=== PATIENT | female | born 1940 | race Caucasian/White ===

== ENCOUNTER 2022-03-01 15:31 | Emergency (ER) | payer MEDICARE ==
[~2022-03-01] VITALS: Ht 170.2 cm; Wt 52.7 kg
[~2022-03-01 15:31] MED LIST: AMLO2.5T5 PO; ASPI-845 PO; BECL8.7A7 INH; BUPR100T5 PO; CITA20TA19 PO
[2022-03-01 16:06] LABS: BASOPHILS # (AUTO) 0.1 X10'3 (0-0.2); BASOPHILS % (AUTO) 0.9 % (0-1); EOSINOPHILS # (AUTO) 0.1 X10'3 (0-0.9); EOSINOPHILS % (AUTO) 1.4 % (0-6); HEMATOCRIT 42.6 % (35.0-45.0); LYMPHOCYTES # (AUTO) 1.7 X10'3 (1.1-4.8); LYMPHOCYTES % (AUTO) 22.6 % (21-51); MEAN CORPUSCULAR HEMOGLOBIN 28.6 PG (27.0-31.0); MEAN CORPUSCULAR HGB CONC 32.9 g/dL (33.0-36.5); MEAN PLATELET VOLUME 8.2 FL (7.4-10.4); MONOCYTES # (AUTO) 0.6 X10'3 (0-0.9); MONOCYTES % (AUTO) 7.4 % (2-12); NEUTROPHILS # (AUTO) 5.2 X10'3 (1.8-7.7); NEUTROPHILS % (AUTO) 67.7 % (42-75); PLATELET COUNT 300 X10'3 (140-440); RED CELL DISTRIBUTION WIDTH 13.3 % (11.5-14.5); WHITE BLOOD COUNT 7.6 X10'3 (4.5-11.0)
[2022-03-01 16:23] LABS: ALANINE AMINOTRANSFERASE 28 U/L (12-78); ALBUMIN 3.8 G/DL (3.4-5.0); ALBUMIN/GLOBULIN RATIO 1.2 (1.1-1.5); ALKALINE PHOSPHATASE 96 IU/L (46-116); ANION GAP 5 (8-16); ASPARTATE AMINO TRANSFERASE 20 U/L (10-37); BILIRUBIN,TOTAL 0.4 MG/DL (0.1-1.0); BLOOD UREA NITROGEN 17 MG/DL (7-18); BUN/CREATININE RATIO 23.3 (6.6-38.0); CALCIUM 8.9 MG/DL (8.5-10.1); CHLORIDE 106 MMOL/L (99-107); CREATININE 0.73 MG/DL (0.40-0.90); GLUCOSE 145 MG/DL (70-104); POTASSIUM 4.3 MMOL/L (3.5-5.1); SODIUM 142 MMOL/L (135-145); TOTAL CARBON DIOXIDE 31.5 MMOL/L (24-32); TOTAL PROTEIN 6.9 G/DL (6.4-8.2); eGFR 77 ML/MIN
[2022-03-01 17:29] LABS: CLARITY,URINE CLEAR (Clear); COLOR,URINE YELLOW (Yellow); GLUCOSE, URINE NEGATIVE (Neg); KETONES,URINE NEGATIVE (Neg); LEUKOCYTE ESTERASE ,URINE NEGATIVE (Neg); NITRITES, URINE NEGATIVE (Neg); OCCULT BLOOD,URINE NEGATIVE (Neg); PROTEIN,URINE NEGATIVE (Neg); UA COLLECTION TYPE CLN CATCH MIDSTREAM
[2022-03-01 20:53] VITALS: BP 126/80
== END 2022-03-01 20:55 | disposition home or self-care (01) ==
LOC: ER 15:33
DX: R53.1 Weakness (principal); I10 Essential (primary) hypertension; J45.909 Unspecified asthma, uncomplicated; M19.90 Unspecified osteoarthritis, unspecified site; Z88.0 Allergy status to penicillin; Z91.012 Allergy to eggs; Z91.011 Allergy to milk products; Z91.018 Allergy to other foods; Z88.8 Allergy status to other drugs, medicaments and biological substances; Z79.82 Long term (current) use of aspirin; Z79.899 Other long term (current) drug therapy
CPT/HCPCS: 36415; 71045; 80053; 81003; 84484; 85025; 93005; 99285

== ENCOUNTER 2024-02-11 14:23 | Emergency (ER) | payer MEDICARE ==
[~2024-02-11] VITALS: Ht 170.2 cm; Wt 56.4 kg
[2024-02-11 14:29] VITALS: TEMP 98.6
[2024-02-11 14:43] VITALS: BP 174/88; PULSE 73; RESP 18; O2SAT 100
[2024-02-11 14:57] LABS: BILIRUBIN,URINE NEGATIVE (Neg); CLARITY,URINE CLEAR (Clear); COLOR,URINE YELLOW (Yellow); GLUCOSE, URINE NEGATIVE (Neg); KETONES,URINE NEGATIVE (Neg); LEUKOCYTE ESTERASE ,URINE NEGATIVE (Neg); NITRITES, URINE NEGATIVE (Neg); OCCULT BLOOD,URINE NEGATIVE (Neg); PROTEIN,URINE NEGATIVE (Neg)
[2024-02-11 15:00] LABS: BASOPHILS # (AUTO) 0.1 X10'3 (0-0.2); BASOPHILS % (AUTO) 0.7 % (0-1); EOSINOPHILS % (AUTO) 0.4 % (0-6); HEMATOCRIT 45.7 % (35.0-45.0); HEMOGLOBIN 15.2 g/dl (12.0-16.0); LYMPHOCYTES # (AUTO) 1.5 X10'3 (1.1-4.8); LYMPHOCYTES % (AUTO) 16.5 % (21-51); MEAN CORPUSCULAR HEMOGLOBIN 29.6 PG (27.0-31.0); MEAN CORPUSCULAR HGB CONC 33.4 g/dL (33.0-36.5); MEAN CORPUSCULAR VOLUME 88.7 FL (78-98); MEAN PLATELET VOLUME 7.6 FL (7.4-10.4); MONOCYTES # (AUTO) 0.4 X10'3 (0-0.9); MONOCYTES % (AUTO) 4.5 % (2-12); NEUTROPHILS # (AUTO) 7.1 X10'3 (1.8-7.7); NEUTROPHILS % (AUTO) 77.9 % (42-75); PLATELET COUNT 393 X10'3 (140-440); RED BLOOD COUNT 5.15 X10'6 (4.20-5.60); RED CELL DISTRIBUTION WIDTH 13.5 % (11.5-14.5); WHITE BLOOD COUNT 9.1 X10'3 (4.5-11.0)
[2024-02-11 15:00] LABS: UA COLLECTION TYPE VOIDED
[2024-02-11 15:52] LABS: ALBUMIN 3.7 G/DL (3.4-5.0); ANION GAP 8 (8-16); BLOOD UREA NITROGEN 13 MG/DL (7-18); BUN/CREATININE RATIO 18.3 (10.0-20.0); CALCIUM 9.5 MG/DL (8.5-10.1); CHLORIDE 101 MMOL/L (99-107); CREATININE 0.71 MG/DL (0.40-0.90); GLUCOSE 123 MG/DL (70-104); POTASSIUM 3.2 MMOL/L (3.5-5.1); PRO BRAIN NATRIURETIC PEPTIDE 269 PG/ML (0-450); SODIUM 140 MMOL/L (135-145); TOTAL CARBON DIOXIDE 30.8 MMOL/L (24-32); eCRCL 54 ML/MIN; eGFR 79 ML/MIN
[2024-02-11] MEDS ORDERED: LOSA-415 PO (16:15)
[2024-02-11] MEDS ORDERED: POTA-366 PO (16:15)
== END 2024-02-11 16:55 | disposition home or self-care (01) ==
LOC: ER 14:24
DX: I10 Essential (primary) hypertension (principal); R05.9 Cough, unspecified; R53.83 Other fatigue; E87.6 Hypokalemia; J45.909 Unspecified asthma, uncomplicated; M19.90 Unspecified osteoarthritis, unspecified site; M25.561 Pain in right knee; Z88.0 Allergy status to penicillin; Z88.1 Allergy status to other antibiotic agents; Z88.8 Allergy status to other drugs, medicaments and biological substances; Z91.011 Allergy to milk products; Z91.018 Allergy to other foods; Z91.012 Allergy to eggs; Z79.899 Other long term (current) drug therapy
CPT/HCPCS: 36415; 71045; 73560; 80048; 81003; 83880; 84484; 85025; 93005; 99285

== ENCOUNTER 2024-02-14 12:33 | Emergency (ER) | payer MEDICARE ==
[~2024-02-14] VITALS: Ht 170.2 cm; Wt 61.4 kg
[~2024-02-14 12:33] MED LIST changes: +LOSA-415 PO; +POTA-366 PO
[2024-02-14 20:45] VITALS: BP 156/78; PULSE 87; RESP 18; TEMP 98; O2SAT 99
[2024-02-14 21:05] LABS: BASOPHILS # (AUTO) 0.1 X10'3 (0-0.2); BASOPHILS % (AUTO) 0.7 % (0-1); D-DIMER 0.89 MG/L FEU (0-0.50); EOSINOPHILS % (AUTO) 0 % (0-6); HEMATOCRIT 45.7 % (35.0-45.0); HEMOGLOBIN 15.6 g/dl (12.0-16.0); LYMPHOCYTES # (AUTO) 1.2 X10'3 (1.1-4.8); LYMPHOCYTES % (AUTO) 12.4 % (21-51); MEAN CORPUSCULAR HGB CONC 34.2 g/dL (33.0-36.5); MEAN CORPUSCULAR VOLUME 87.7 FL (78-98); MEAN PLATELET VOLUME 7.4 FL (7.4-10.4); MONOCYTES # (AUTO) 0.4 X10'3 (0-0.9); MONOCYTES % (AUTO) 4.6 % (2-12); NEUTROPHILS # (AUTO) 7.9 X10'3 (1.8-7.7); NEUTROPHILS % (AUTO) 82.3 % (42-75); PLATELET COUNT 532 X10'3 (140-440); RED BLOOD COUNT 5.21 X10'6 (4.20-5.60); RED CELL DISTRIBUTION WIDTH 13.6 % (11.5-14.5); WHITE BLOOD COUNT 9.6 X10'3 (4.5-11.0)
[2024-02-14 21:10] LABS: BILIRUBIN,URINE NEGATIVE (Neg); CLARITY,URINE SLIGHTLY CLOUDY (Clear); COLOR,URINE YELLOW (Yellow); GLUCOSE, URINE NEGATIVE (Neg); KETONES,URINE NEGATIVE (Neg); LEUKOCYTE ESTERASE ,URINE NEGATIVE (Neg); NITRITES, URINE NEGATIVE (Neg); OCCULT BLOOD,URINE NEGATIVE (Neg); PH,URINE 6.5 (4.8-8.0); PROTEIN,URINE NEGATIVE (Neg)
[2024-02-14 21:12] LABS: UA COLLECTION TYPE CLN CATCH MIDSTREAM
[2024-02-14 21:16] LABS: MUCUS STRANDS MODERATE /LPF (Neg); SQUAMOUS EPITHELIAL CELL,UR FEW /LPF (FEW)
[2024-02-14 21:17] LABS: BACTERIA,URINE FEW /HPF (Neg); RBC,URINE NONE SEEN /HPF (0-2); WBC,URINE 0-4 /HPF (0-4)
[2024-02-14 21:18] LABS: HYALINE CASTS 0-3 /LPF (NEGATIVE); TRANSITIONAL EPI CELLS,URINE FEW /HPF
[2024-02-14 21:18] LABS: ALBUMIN 3.9 G/DL (3.4-5.0); ANION GAP 6 (8-16); BLOOD UREA NITROGEN 13 MG/DL (7-18); BUN/CREATININE RATIO 16.7 (10.0-20.0); CALCIUM 9.5 MG/DL (8.5-10.1); CHLORIDE 103 MMOL/L (99-107); CREATININE 0.78 MG/DL (0.40-0.90); GLUCOSE 136 MG/DL (70-104); LIPASE 27 U/L (16-77); MAGNESIUM 2.1 MG/DL (1.5-2.4); POTASSIUM 4.5 MMOL/L (3.5-5.1); PRO BRAIN NATRIURETIC PEPTIDE 278 PG/ML (0-450); SODIUM 140 MMOL/L (135-145); TOTAL CARBON DIOXIDE 31.3 MMOL/L (24-32); eCRCL 54 ML/MIN; eGFR 71 ML/MIN
[2024-02-14] MEDS ORDERED: iohexol 350MG/ML 100ml bottle IV ONE (21:48)
== END 2024-02-14 23:49 | disposition home or self-care (01) ==
LOC: ER 12:33
DX: R53.1 Weakness (principal); I10 Essential (primary) hypertension; M54.2 Cervicalgia; M25.519 Pain in unspecified shoulder; Z88.1 Allergy status to other antibiotic agents; Z91.014 Allergy to mammalian meats; Z91.012 Allergy to eggs; Z91.011 Allergy to milk products; Z88.0 Allergy status to penicillin; Z91.018 Allergy to other foods; J45.909 Unspecified asthma, uncomplicated; M19.90 Unspecified osteoarthritis, unspecified site
CPT/HCPCS: 36415; 71045; 71275; 74177; 80048; 81001; 83690; 83735; 83880; 84484; 85025; 85379; 93005; 99285; J3490; Q9967

== ENCOUNTER 2024-11-27 23:53 | Emergency (ER) | payer MEDICARE ==
[~2024-11-27] VITALS: Ht 170.2 cm; Wt 56.8 kg
[~2024-11-27 23:53] MED LIST changes: -LOSA-415 PO
[2024-11-27 23:56] VITALS: BP 154/91; PULSE 87; O2SAT 98
[2024-11-28] MEDS: oxyCODONE IR 5mg (immed. release) tablet PO ONE ×2 (00:01→01:28)
[2024-11-28] MEDS ORDERED: oxyCODONE IR 5mg (immed. release) tablet PO ONE (01:10)
[2024-11-28] MEDS: ibuprofen tablet 400 MG TABLET PO ONE (01:28)
[2024-11-28 01:30] VITALS: RESP 16
[2024-11-28 01:39] VITALS: TEMP 98.9
== END 2024-11-28 01:39 | disposition home or self-care (01) ==
LOC: ER 23:54
DX: S42.032A Displaced fracture of lateral end of left clavicle, initial encounter for closed fracture (principal); I10 Essential (primary) hypertension; J45.909 Unspecified asthma, uncomplicated; M19.90 Unspecified osteoarthritis, unspecified site; Z88.0 Allergy status to penicillin; Z88.1 Allergy status to other antibiotic agents; Z91.014 Allergy to mammalian meats; Z91.011 Allergy to milk products; Z91.018 Allergy to other foods; Z79.899 Other long term (current) drug therapy; Z79.82 Long term (current) use of aspirin; Z98.890 Other specified postprocedural states; W01.0XXA Fall on same level from slipping, tripping and stumbling without subsequent striking against object, initial encounter; Y93.89 Activity, other specified; Y92.89 Other specified places as the place of occurrence of the external cause; Y99.8 Other external cause status
CPT/HCPCS: 99284

== ENCOUNTER 2025-06-05 20:10 | Emergency (ER) | payer MEDICARE ==
[~2025-06-05] VITALS: Ht 170.2 cm; Wt 57.3 kg
[2025-06-05 20:37] VITALS: BP 170/92; PULSE 84; RESP 18; O2SAT 98
--- NOTE | 2025-06-05 21:11 | RADIOLOGY REPORT ---
CLINICAL INDICATION: ARM PAIN LEFT TECHNIQUE: 2 views DI FOREARM,INCL.ONE JOINT Comparison: None FINDINGS: No evidence of acute fracture. Diffuse osteopenia. The wrist and elbow joints are congruent with mo derate to severe osteoarthrosis. Unremarkable soft tissues. IMPRESSION: 1. No acute finding of the left forearm.
--- NOTE | 2025-06-05 21:12 | RADIOLOGY REPORT ---
CLINICAL INDICATION: ELBOW PAIN LEFT TECHNIQUE: 4 views DI ELBOW, COMPLETE (3VW MIN) Comparison: Same day left forearm radiographs FINDINGS: No acute fracture or dislocation. Diffuse osteopenia. Moderate to severe osteoarthrosis. Small join t effusion suggested. No appreciable soft tissue swelling. IMPRESSION: 1. Borderline joint effusion without acute osseous finding of the left elbow. Advanced degenerative c hanges.
[2025-06-05] MEDS ORDERED: DICL20GE TOP (22:28)
--- NOTE | 2025-06-05 22:29 | Physician Documentation ---
History of Present Illness ~ Chief Complaint: Arm Pain Stated Complaint: ELBOW PAIN FROM A FALL Time Seen by MD: 21:58 Primary Medical Doctor: Dr. Lopez at [facility] This very pleasant 85-year-old female who had a recent fall presents presents today with increased pain and swelling in her left elbow. She says after her fall and being fully evaluated she did not have left elbow pain but has since developed it progressively over the last week according to her daughter she has been using a cane her left arm since her fall. Reports the pain is worse with range of motion denies any additional falls. States that the pain is primarily on the lateral aspect of her left elbow Tetanus within 5 years: Yes Medication Reconciliation Allergies: Coded Allergies: Penicillins (Verified Allergy, Unknown, 03/01/22) amoxicillin (Unverified Allergy, Unknown, 02/11/24) methylphenidate (Verified Allergy, Unknown, hyper, 03/01/22) Beef Containing Products (Verified Adverse Reaction, Severe, 03/01/22) Milk Containing Products (Dairy) (Verified Adverse Reaction, Severe, 03/01/22) Pork/Porcine Containing Products (Verified Adverse Reaction, Severe, 03/01/22) chicken derived (Verified Adverse Reaction, Severe, 03/01/22) egg (Verified Adverse Reaction, Severe, 03/01/22) Scheduled Amlodipine Besylate (Amlodipine Besylate), 1 TAB PO DAILY, (Reported) Aspirin (Aspirin EC), 1 TABLET PO DAILY Beclomethasone Dipropionate (Qvar 80 Mcg Inhaler), 2 PUFFS INH Q12H, (Reported) Bupropion HCl (Wellbutrin Sr), 1 TAB PO BID, (Reported) Citalopram Hydrobromide (Celexa), 1 TAB PO DAILY, (Reported) Diclofenac Sodium (Voltaren Arthritis Pain), 1 APPLIC TOP BID Potassium Chloride (Potassium Chloride), 1 TAB PO DAILY Past Medical History Past Medical History: Hypertension, Asthma, Arthritis Past Surgical History: orthopedic surgeries Alcohol Use: None Drug Use: none Lives In: Home Occupation: retired Review of Systems All Other Systems at this time: Reviewed and Negative ROS As stated above in the HPI, otherwise all systems are reviewed and negative. Physical Exam Vital Signs: Temperature: 99.9, Source: Temporal, Heart Rate: 84, Respiratory Rate: 18, BP: 170/92, Pulse Oximetry: 98, Weight: 57.270 Oxygen Flow Rate: 0 Physical Exam General: Alert, no apparent distress. Extremities: Normal range of motion, point tenderness on the left lateral epicondyle, mild swelling Neurologic: Oriented x4. Progress Results/Orders Results/Orders Orders - REED RUIZ NP General Nursing Order (06/05/25 ) Vital Signs 06/05/25 06/05/25 20:37 22:31 Temp 99.9 99.9 Pulse 84 Resp 18 B/P (MAP) 170/92 Pulse Ox 98 O2 Flow Rate 0 Medical Decision Making Findings I do not appreciate any signs of acute fracture in the patient's elbow x-ray. I do suspect tennis elbow secondary to point tenderness in the lateral epicondyle. This correlates with the patient utilizing a cane recently. Discussed this with the patient and the patient's daughter that an Damian wrap rest and potentially physical therapy may be required Departure Disposition: 01 HOME / SELF CARE / HOMELESS Impression: Primary Impression: Tendinitis Condition: Stable Discharge Instructions: Tennis Elbow, [id number] Additional Instructions: rest your elbow as much as you can. With overuse tendonitis can get worse. I p rescribed you Voltaren gel to help with the pain and inflammation. you can use the Damian wrap as well for compression Referrals: NO PRIMARY CARE PROVIDER (PCP) Prescriptions Diclofenac Sodium (Voltaren Arthritis Pain) 1 % Gel..gram. 1 APPLIC TOP BID for pain for 10 Days, #30 GM Prov: REED RUIZ NP 06/05/25 Education Educated: Patient Educated regarding: diagnosis Signature Scribe Signature: f Attestation: Scribed for Reed Ruiz Np by Reed Gipson NP . 06/05/25 23:14 REED RUIZ NP Jun 05, 2025 22:29
[2025-06-05 22:31] VITALS: TEMP 99.9
== END 2025-06-05 22:32 | disposition home or self-care (01) ==
LOC: ER 20:11
DX: M77.8 Other enthesopathies, not elsewhere classified (principal); I10 Essential (primary) hypertension; J45.909 Unspecified asthma, uncomplicated; M19.90 Unspecified osteoarthritis, unspecified site; Z88.0 Allergy status to penicillin; Z88.8 Allergy status to other drugs, medicaments and biological substances
CPT/HCPCS: 73080; 73090; 99284